=== PATIENT | female | born 1975 | race Caucasian/White ===

== ENCOUNTER 2019-06-28 15:39 | Emergency (ER) | payer MEDICAID ==
[~2019-06-28] VITALS: Wt 79.0 kg
[~2019-06-28 15:39] MED LIST: LOPE2CAP PO
[2019-06-28 15:44] VITALS: BP 148/70; PULSE 69; RESP 18
--- NOTE | 2019-06-28 17:20 | ERD ---
ER Documentation Chief Complaint Chief Complaint DIARRHEA YESTERDAY, RESOLVED NOW HPI 44-year-old female is here with diarrhea she had on and off for 8 days. She gets occasional chills. No blood in the stool but states sometimes is dark. No vomiting. No fever. Her primary care doctor sent here here to get some sort of ultrasound or imaging to check the stomach. ROS All systems reviewed and are negative except as per history of present illness. Medications Home Meds Active Scripts Loperamide Hcl* (Imodium*) 2 Mg Capsule, 2 MG PO .AFTER EA LOOSE BM PRN for DIARRHEA, #10 TAB Prov:PRIMITIVO KO SONIA 06/28/19 FmHx Family History: No diabetes Physical Exam Vitals Vital Signs Date Temp Pulse Resp B/P (MAP) Pulse Ox O2 O2 Flow FiO2 Time Delivery Rate 06/28/19 98.1 69 18 148/70 99 15:44 (96) Physical Exam INITIAL VITAL SIGNS: Reviewed by me GENERAL: Awake, alert and oriented x 4, well appearing, nontoxic, speaking in fu ll sentences. No acute distress RESPIRATORY: Clear to auscultation bilaterally. Symmetric chest wall rise. No wheezing or rales. No accessory muscle use. CV: Regular rate and rhythm. No murmurs, rubs, or gallops. ABDOMEN: Soft, non-distended. Nontender. Negative [place]. Negative McBurneys point tenderness. No CVA tenderness bilaterally. No guarding. No rebound. Results 24 hrs Laboratory Tests Test 06/28/19 16:25 POC Beta HCG, Qualitative NEGATIVE Procedures/MDM Patient is here with diarrhea. Exam is normal. Low suspicion for emergent etiology but per her request I ordered a CT scan which was negative. She was given copy of the results. She was given prescription for Imodium. Patient counseled regarding my diagnostic impression and care plan. Prior to discharge all questions answered. Pt agrees with treatment plan and understands strict return precautions. Pt is instructed to follow up with primary care provider within 24-48 hours. Precautionary instructions provided including instructions to return to the ER if not improving or for any worsening or changing symptoms or concerns. Departure Diagnosis: Primary Impression: Diarrhea Condition: Stable Patient Instructions: Treating Diarrhea Additional Instructions: Llame al doctor JOSE y susanna jose r RYAN PARA DENTRO DE 1-2 EMERSON.Dgale a la secretaria que nosotros le instruimos hacer esta ryan.Avise o llame si perry condicin se empeora antes de la ryan. Regresa aqui si peor o no mejor. PRIMITIVO KO PA-C Jun 28, 2019 17:20
== END 2019-06-28 17:18 | disposition home or self-care (01) ==
LOC: E/R 15:39
DX: R19.7 Diarrhea, unspecified (principal)
CPT/HCPCS: 74176; 81025; Z7502